=== PATIENT | female | born 1985 | race Caucasian/White ===

== ENCOUNTER 2018-10-14 19:04 | Emergency (ER) | payer OTHER ==
[~2018-10-14] VITALS: Ht 162.6 cm; Wt 74.8 kg
[2018-10-14 19:12] VITALS: BP 160/107; Ht 162.6 cm; Wt 74.8 kg
== END 2018-10-14 20:38 | disposition home or self-care (01) ==
LOC: ED 19:04
DX: S01.511A Laceration without foreign body of lip, initial encounter (principal); S09.8XXA Other specified injuries of head, initial encounter; W50.0XXA Accidental hit or strike by another person, initial encounter; Y93.89 Activity, other specified; Y92.89 Other specified places as the place of occurrence of the external cause; Y99.8 Other external cause status
CPT/HCPCS: J2001